=== PATIENT | female | born 1945 | race Caucasian/White ===

== ENCOUNTER → 2016-12-15 | Outpatient (CLI) | payer MEDICARE, BC ==
[~2016-12-15] MED LIST: ACETAMINOPHEN500 M3 PO; ASPIRIN1 GM; ASPIRIN81 M1 PO; B COMPLEX1 CA1 PO; CALCIUM 600 MG1 EACH PO; CHLORHEX GLU; CLOPIDOGREL75 MG PO; CRESTOR40 MG PO; ENDOCET 5-3251 EACH PO; HYDROCHLOROTHIA25 MG PO; LANSOPRAZOLE30 M2 PO; LEVOTHROID75 MCG PO; LEVOTHYROXINE100 MC1 PO; LORTAB 10-5001 EACH PO; MULTI VITAMIN1 EACH PO; NATURAL VITA400 UNI2 PO; NEURONTIN300 MG PO; OMEPRAZOLE20 M1 PO; OMEPRAZOLE20 M2 PO; PRAVACHOL20 MG PO; VITAMIN D250000 UNIT PO; [UNRECOGNIZED DRUG - OTHER]
--- NOTE | ~2016-12-15 | US77 ---
[facility] A Service of [facility] RADIOLOGY TEXT RESULTS PATIENT: NICO LANDON LOCATION: [facility] : 49 UNIT #: [id number] AGE: [address]: Chivo Rasmussen MD SEX: F ORDER DR: [id number] [facility] [address] [place], [place] [address] [id number] O MR#: [id number] Acc #: [id number] NAME: NICO LANDON : 1945 SEX: F STUDY DATE/TIME: 12/15/2016 12:48 UNIT: [facility] ROOM: STUDY DESCRIPTION: US Kidney Bilateral Complete Attending Physician: Chivo Rasmussen M.D. Referring Physician: Chivo Rasmussen M.D. Ordering Physician: Chivo Rasmussen M.D. Primary Care Physician: Chivo Rasmussen M.D. MEDICAL IMAGING REPORT This report is preliminary unless electronic signature is present EXAM Renal ultrasound INDICATIONS Recurrent urinary tract infection. PROCEDURE Allan-scale and Doppler imaging of the kidneys and bladder. COMPARISON None FINDINGS Right kidney measures 10.4 cm in length, normal cortical thickness. Left kidney measures 12.1 cm in length. Normal cortical thickness, no hydronephrosis. Unremarkable bladder. IMPRESSION Negative renal ultrasound. Dictated by... Vinicius Izaguirre M.D. THIS IS AN ELECTRONICALLY VERIFIED REPORT Vinicius Izaguirre M.D. at 12/18/2016 7:05 AM EED/psc TD: 12/15/2016 15:24 JOB #: [id number] MEDICAL IMAGING REPORT Page 1 of 1 COPY
== END | disposition home or self-care (01) ==
LOC: CGUS 12:30
DX: N39.0 Urinary tract infection, site not specified (principal)
CPT/HCPCS: 76770